=== PATIENT | male | born 1990 | race Caucasian/White ===

== ENCOUNTER 2018-08-11 16:05 | Emergency (ER) | payer OTHER ==
[~2018-08-11] VITALS: Ht 172.7 cm; Wt 113.6 kg
[2018-08-11] MEDS ORDERED: ZOLOFT25 M1 PO (16:47)
[2018-08-11 17:07] LABS: EOS # 0.1 (0.04-0.40); HEMOGLOBIN 15.6 g/dL (13.5-18.0); LYMPH# 2.1 (1.50-4.00); MEAN CELL VOLUME 87 fl (78-100); MEAN CORPUSCULAR HEMOGLOBIN 29 pg (27-31); MEAN CORPUSCULAR HGB CONC 33 g/dL (33-37); MEAN PLATELET VOLUME 9.6 fl (7.4-10.4); MONO # 0.8 (0.20-0.80); NEU # 4.9 (1.40-6.50); PLATELET COUNT 301 K/mm3 (130-400); RED BLOOD COUNT 5.41 M/mm3 (4.20-5.60); RED CELL DISTRIBUTION WIDTH 13.2 % (11.5-14.5); WHITE BLOOD COUNT 7.9 K/mm3 (4.8-10.8)
[2018-08-11 17:18] LABS: ALBUMIN 4.7 g/dL (3.5-5.0); CALCIUM 9.6 mg/dL (8.4-10.2); POTASSIUM 3.9 mmol/L (3.6-5.0); TOTAL BILIRUBIN 0.8 mg/dL (0.2-1.3); TOTAL PROTEIN 7.5 g/dL (6.3-8.2)
[2018-08-11 18:01] LABS: URINE APPEARANCE HAZY; URINE COLOR YELLOW
[2018-08-11 18:02] LABS: URINE BILIRUBIN NEGATIVE (NEGATIVE); URINE BLOOD 50 ery/uL (NEGATIVE); URINE GLUCOSE NEGATIVE (NEGATIVE); URINE KETONE NEGATIVE (NEGATIVE); URINE LEUKOCYTE ESTERASE NEGATIVE (NEGATIVE); URINE NITRATE NEGATIVE (NEGATIVE); URINE PROTEIN(semi-quant) NEGATIVE (NEGATIVE); URINE UROBILINOGEN NORMAL (NORMAL); URINE WBC 0-1 /hpf (0-3)
[2018-08-11] MEDS ORDERED: CYCLOBENZAPRINE10 M1 PO (21:09)
[2018-08-11 21:15] VITALS: BP 130/80
== END 2018-08-11 21:15 | disposition home or self-care (01) ==
LOC: ED 16:08
PROVIDERS: Nurse Practitioner Family
DX: R07.89 Other chest pain (principal); G44.209 Tension-type headache, unspecified, not intractable; G43.909 Migraine, unspecified, not intractable, without status migrainosus; Z79.899 Other long term (current) drug therapy; F32.9 Major depressive disorder, single episode, unspecified; Z82.49 Family history of ischemic heart disease and other diseases of the circulatory system
CPT/HCPCS: J1885; J2360; J7030